=== PATIENT | male | born 1955 | race Caucasian/White ===

== ENCOUNTER 2018-03-09 21:05 | Inpatient (IN) | payer MEDICARE, OTHER ==
[~2018-03-09] VITALS: Ht 180.3 cm; Wt 81.2 kg
--- NOTE | 2018-03-09 21:10 | NUR ---
BIBSELF C/O FEELING DIZZY X 2 DAYS. HX VERTIGO. NAD NOTED, VSS, RESP EVEN AND UNLABORED, PT WAS PUT ON HOSPITAL GOWN AND MONITOR, WAITING FOR MD DC.
[2018-03-09 21:55] LABS: BASOPHILS # (AUTO) 0.1 /CMM (0.0-0.2); BASOPHILS % (AUTO) 0.9 % (0.0-2.0); EOSINOPHILS % (AUTO) 1.7 % (0.0-6.0); HEMATOCRIT 44 % (39-51); HEMOGLOBIN 15.2 g/dL (13.5-17.5); LYMPHOCYTES % (AUTO) 18.6 % (20.0-44.0); MEAN CORPUSCULAR HGB CONC 35 g/dl (31.0-36.0); MEAN CORPUSCULAR VOLUME 95 fL (80-96); MONOCYTES % (AUTO) 9.6 % (2.0-12.0); NEUTROPHILS # (AUTO) 7.6 /CMM (1.8-8.9); NEUTROPHILS % (AUTO) 69.2 % (43.0-81.0); PLATELET COUNT (AUTO) 210 /CMM (150-450); RDW COEFFICIENT OF VARIATION 14.2 (11.5-15.0); RED BLOOD CELL COUNT(AUTO) 4.63 MIL/uL (4.5-6.0); WHITE BLOOD COUNT (AUTO) 10.9 K/uL (4.3-11.0)
--- NOTE | 2018-03-09 21:59 | NUR ---
pt back from ctscan
[2018-03-09 22:08] LABS: INR 0.96 (0.87-1.13)
[2018-03-09 22:14] LABS: CALCIUM, SERUM 8.8 mg/dL (8.5-10.1); CARBON DIOXIDE 25 mmol/L (21-32); CHLORIDE 102 mmol/L (98-107); GLUCOSE 110 mg/dL (74-106); POTASSIUM 3.6 mmol/L (3.5-5.1); SODIUM SERUM 137 mmol/L (136-145); UREA NITROGEN, BLOOD 10 mg/dL (7-18)
[2018-03-09 22:18] LABS: ALANINE AMINOTRANSFERASE 19 U/L (12-78); ALBUMIN 3.7 g/dL (3.4-5.0); ALKALINE PHOSPHATASE 85 U/L (46-116); ASPARTATE AMINOTRANSFERASE 20 U/L (15-37); BILIRUBIN,DIRECT 0.2 mg/dL (0.0-0.2); BILIRUBIN,TOTAL 0.9 mg/dL (0.2-1.0); TOTAL PROTEIN, SERUM 6.9 g/dL (6.4-8.2)
[2018-03-09 22:20] LABS: TROPONIN I < 0.017 ng/mL (0.00-0.056)
--- NOTE | 2018-03-09 23:14 | NUR ---
Patient is resting comfortably in bed with eyes closed. Easily aroused. VSS
--- NOTE | 2018-03-09 23:27 | NUR ---
REPORT REC'D FROM BURT MOSS FOR VALERIANO.
--- NOTE | 2018-03-09 23:35 | NUR ---
PT AMBULATED TO THE BATHROOM AND BACK USING HIS CANE. PT STATED THAT HE WAS VERY DIZZY UPON RETURNING TO THE ROOM. PT STATED THAT THE ROOM SPINS WHEN HE CLOSES HIS EYES.
--- NOTE | 2018-03-09 23:36 | NUR ---
CALLING REPORT TO TELE NURSE.
[2018-03-09] MEDS ORDERED: MECLIZINE HCL 25 MG TABLET ONE (23:37)
--- NOTE | 2018-03-09 23:37 | NUR ---
TELE NURSE TO CALL BACK
--- NOTE | 2018-03-09 23:50 | NUR ---
CALLING REPORT TO BURT MAXWELL
[2018-03-10] VITALS: BP_SYST 140; BP_SYST 147; BP_DIAS 82; BP_DIAS 87
[2018-03-10] MEDS ORDERED: ONDANSETRON HCL/PF 4 MG/2 ML VIAL IVP PRN
[2018-03-10] MEDS ORDERED: MECLIZINE HCL 12.5 MG TABLET PO ONE
[2018-03-10] MEDS ORDERED: MECLIZINE HCL 12.5 MG TABLET PO PRN
--- NOTE | 2018-03-10 00:05 | NUR ---
[employer] SUPERINTENDENT NOTES ADMITTED 62YO MALE PT WITH DIZZINESS ALERT, AWAKE, VERBALLY RESPONSIVE. ON ROOM AIR RESPIRATIONS EVEN, UNLABORED, NO APPARENT DISTRESS NOTED. IV SITE LAC INTACT, PATENT. DENIES ANY PAIN OR DISCOMFORT AT THIS TIME. BODY ASSESSMENT DONE, NO SKIN BREAKDOWN NOTED. BED LOCKED IN LOWEST POSITION.NSR 62. CALL LIGHT WITHIN REACH. KEPT CLEAN AND COMFORTABLE, ATTENDED ALL NEEDS. WILL CONTINUE TO MONITOR ACCORDINGLY.
[2018-03-10] MEDS: ASPIRIN EC 81 MG TABLET.DR PO SCH ×2 (00:43→12:38)
[2018-03-10] MEDS: ACETAMINOPHEN 325 MG TABLET PO PRN (01:29)
[2018-03-10 04:00] VITALS: BP 99/59
--- NOTE | 2018-03-10 06:53 | NUR ---
SOFTWARE SUPPORT ANALYST CLOSING NOTES PT IN BED RESTING COMFORTABLY ON ROOM AIR, RESPIRATIONS EVEN, UNLABORED, NO APPARENT DISTRESS NOTED. DENIES ANY PAIN OR DISCOMFORT AT THIS TIME.NSR 62. IV SITE LAC INTACT, PATENT. KEPT CLEAN AND COMFORTABLE, ATTENDED ALL NEEDS. WILL ENDORSE TO DAY SHIFT FOR CONTINUITY OF CARE
[2018-03-10 07:13] LABS: THYROID STIMULATING HORMONE 1.85 uIU/mL (0.358-3.74)
[2018-03-10 07:15] LABS: ALBUMIN 3.2 g/dL (3.4-5.0); BILIRUBIN,TOTAL 0.9 mg/dL (0.2-1.0); CALCIUM, SERUM 8.5 mg/dL (8.5-10.1); CREATININE 0.8 mg/dL (0.6-1.3); MAGNESIUM 2.6 mg/dL (1.8-2.4); PHOSPHORUS 2.4 mg/dL (2.5-4.9); POTASSIUM 3.5 mmol/L (3.5-5.1); TOTAL PROTEIN, SERUM 6.2 g/dL (6.4-8.2)
[2018-03-10 07:35] LABS: BASOPHILS % (AUTO) 0.5 % (0.0-2.0); EOSINOPHILS % (AUTO) 3.2 % (0.0-6.0); HEMATOCRIT 42 % (39-51); HEMOGLOBIN 14.6 g/dL (13.5-17.5); LYMPHOCYTES # (AUTO) 2.3 /CMM (0.8-4.8); LYMPHOCYTES % (AUTO) 27.5 % (20.0-44.0); MEAN CORPUSCULAR HGB CONC 35 g/dl (31.0-36.0); MEAN CORPUSCULAR VOLUME 96 fL (80-96); MONOCYTES # (AUTO) 0.8 /CMM (0.1-1.30); MONOCYTES % (AUTO) 9.5 % (2.0-12.0); NEUTROPHILS # (AUTO) 4.9 /CMM (1.8-8.9); NEUTROPHILS % (AUTO) 59.3 % (43.0-81.0); PLATELET COUNT (AUTO) 191 /CMM (150-450); RDW COEFFICIENT OF VARIATION 14.2 (11.5-15.0); RED BLOOD CELL COUNT(AUTO) 4.38 MIL/uL (4.5-6.0); WHITE BLOOD COUNT (AUTO) 8.3 K/uL (4.3-11.0)
[2018-03-10 08:00] VITALS: BP 116/72
--- NOTE | 2018-03-10 08:00 | NUR ---
ms rn received obn bed, awake,aelert oriented x3,not in ay form of distress, respirations, even and unlabored,no sob noted, lungs are clear,abdomen soft,positive bowel sounds, denies pain at this time, will monitor patient.
--- NOTE | 2018-03-10 09:05 | NUR ---
ms rn breakfast served,for now, not until patient be seen by dr. camp.
--- NOTE | 2018-03-10 09:59 | NUR ---
ms rn was seen by dr. jodee tirado and carried out.
[2018-03-10] MEDS ORDERED: LORA-259 PO (10:08)
[2018-03-10] MEDS ORDERED: CT SWABBABLE VALVE TRANS SET 1 EA INFUS.SET MC ONE (10:49)
[2018-03-10] MEDS ORDERED: IV NS 0.9% 250 ML IV ONE (10:49)
[2018-03-10] MEDS ORDERED: IOHEXOL-350 100 ML VIAL IV ONE (10:49)
[2018-03-10] MEDS: LORAZEPAM 1 MG TABLET PO SCH (11:30)
[2018-03-10] MEDS: NICOTINE PATCH (21MG) 21 MG PATCH.TD24 TD SCH (11:30)
[2018-03-10] MEDS ORDERED: IV NS 0.9% 1,000 ML IV PRN (11:30)
[2018-03-10] MEDS: LORAZEPAM 0.5 MG TABLET PO PRN ×2 (11:41→20:04)
[2018-03-10] MEDS: PANTOPRAZOLE 40 MG TABLET.DR PO SCH (12:38)
[2018-03-10] MEDS ORDERED: K PHOS NEUTRAL 250 MG TABLET PO ONE (13:30)
[2018-03-10 16:08] VITALS: BP 107/70
--- NOTE | 2018-03-10 19:00 | NUR ---
ms rn no change of condition, patient is so noncompliant,all needs attended.
--- NOTE | 2018-03-10 19:45 | NUR ---
MS RN OPENING NOTES RECEIVED PT IN BED ALERT, AWAKE, VERBALLY RESPONSIVE, ON ROOM AIR, RESPIRATIONS EVEN, UNLABORED, NO APPARENT DISTRESS NOTED. DENIES ANY PAIN OR DISCOMFORT AT THIS TIME. IV SITE LAC INTACT, PATENT, ATTENDED ALL NEEDS. WILL CONTINUE TO MONITOR ACCORDINGLY.
[2018-03-10 20:00] VITALS: BP 121/78
[2018-03-10 22:00] VITALS: BP 121/78
--- NOTE | 2018-03-11 06:32 | NUR ---
MS RN CLOSING NOTES PT IN BED RESTING COMFORTABLY, ON ROOM AIR, RESPIRATIONS EVEN, UNLABORED, NO APPARENT DISTRESS NOTED. IV SITE LT AC INTACT, PATENT,CALL LIGHT WITHIN REACH. BED LOCKED IN LOWEST POSITION. KEPT CLEAN AND COMFORTABLE,ATTENDED ALL NEEDS. WILL CONTINUE TO MONITOR AND ENDORSE TO DAY SHIFT FOR CONTINUITY OF CARE
[2018-03-11 06:37] LABS: BASOPHILS # (AUTO) 0.1 /CMM (0.0-0.2); BASOPHILS % (AUTO) 0.7 % (0.0-2.0); EOSINOPHILS % (AUTO) 4.2 % (0.0-6.0); HEMATOCRIT 42 % (39-51); HEMOGLOBIN 14.6 g/dL (13.5-17.5); LYMPHOCYTES # (AUTO) 2.2 /CMM (0.8-4.8); LYMPHOCYTES % (AUTO) 29.3 % (20.0-44.0); MEAN CORPUSCULAR HGB CONC 35 g/dl (31.0-36.0); MEAN CORPUSCULAR VOLUME 95 fL (80-96); MONOCYTES # (AUTO) 0.7 /CMM (0.1-1.30); MONOCYTES % (AUTO) 9.1 % (2.0-12.0); NEUTROPHILS # (AUTO) 4.2 /CMM (1.8-8.9); NEUTROPHILS % (AUTO) 56.7 % (43.0-81.0); PLATELET COUNT (AUTO) 183 /CMM (150-450); RDW COEFFICIENT OF VARIATION 14.1 (11.5-15.0); RED BLOOD CELL COUNT(AUTO) 4.41 MIL/uL (4.5-6.0); WHITE BLOOD COUNT (AUTO) 7.4 K/uL (4.3-11.0)
[2018-03-11 07:06] LABS: CALCIUM, SERUM 8.1 mg/dL (8.5-10.1); CREATININE 0.9 mg/dL (0.6-1.3); MAGNESIUM 1.9 mg/dL (1.8-2.4); PHOSPHORUS 2.8 mg/dL (2.5-4.9); POTASSIUM 3.7 mmol/L (3.5-5.1)
--- NOTE | 2018-03-11 07:25 | NUR ---
RN OPENING NOTES RECEIVED PT. IN BED A&OX4. NO S/S OF SOB, BREATHING IS UNLABORED, AND EVEN ON ROOM AIR. NO S/S OF ACUTE DISTRESS. CANE NEAR BEDSIDE. BED IS IN LOWEST, AND LOCKED POSITION. 2 SIDE RAILS UP, AND INSTRUCTED PT. TO USE CALL LIGHT FOR ASSISTANCE. ALL NEEDS MET. WILL CONTINUE TO ASSESS AND MONITOR.
[2018-03-11 08:00] VITALS: BP 112/80
[2018-03-11] MEDS: NICOTINE PATCH (21MG) 21 MG PATCH.TD24 TD SCH (09:00)
[2018-03-11] MEDS: ASPIRIN EC 81 MG TABLET.DR PO SCH (10:07)
[2018-03-11] MEDS: PANTOPRAZOLE 40 MG TABLET.DR PO SCH (10:08)
[2018-03-11] MEDS: LORAZEPAM 1 MG TABLET PO SCH (10:08)
[2018-03-11 16:06] VITALS: BP 118/86
--- NOTE | 2018-03-11 19:15 | NUR ---
MS [place] OPENING NOTES: RECEIVED PT IN BED AND IS WATCHING TELEVISION AT THIS TIME. NO S/S OF DISTRESS NOTED AT THIS TIME. PT IS A/OX4. PT REQUESTING FOR A SMOKE BREAK. CALL LIGHT WITHIN PT'S REACH. BED KEPT IN LOW, LOCKED POSITION, AND SIDE RAILS X 2UP. CANE AT BEDSIDE. WILL CONTINUE TO MONITOR PT. Addendum: 03/11/18 at 2149 by RAMA YBARRA RN PT'S IV REMAINS INTACT.
--- NOTE | 2018-03-11 19:42 | NUR ---
MS RN NOTES: PT WENT DOWN FOR SMOKE BREAK WITH ORGANIZATIONAL EFFECTIVENESS DIRECTOR.
--- NOTE | 2018-03-11 19:50 | NUR ---
RN CLOSING NOTES PT. IS IN BED A&OX4. NO S/S OF SOB, BREATHING IS UNLABORED, AND EVEN ON ROOM AIR. NO S/S OF ACUTE DISTRESS. CANE NEAR BEDSIDE. BED IS IN LOWEST, AND LOCKED POSITION. 2 SIDE RAILS UP, AND INSTRUCTED PT. TO USE CALL LIGHT FOR ASSISTANCE. ALL NEEDS MET. WILL ENDORSE REPORT TO NURSE.
--- NOTE | 2018-03-11 19:51 | NUR ---
MS RN NOTES: PT BACK FROM SMOKE BREAK IN STABLE CONDITION.
[2018-03-11 20:00] VITALS: BP 114/68
[2018-03-11] MEDS: LORAZEPAM 0.5 MG TABLET PO PRN (21:10)
--- NOTE | 2018-03-11 21:13 | NUR ---
MS RN NOTES: PT VERY ANXIOUS. PT WALKING OUT OF ROOM. PT WAS ADMINISTERED ATIVAN 0.5MG PO. WILL CONTINUE TO MONITOR PT.
[2018-03-12] MEDS: PANTOPRAZOLE 40 MG TABLET.DR PO SCH (06:54)
--- NOTE | 2018-03-12 06:56 | NUR ---
MS RN NOTES: RETURNED PROTONIX BECAUSE PT WENT BACK TO SLEEP. LATER ON, PT WAS WALKING OUT OF THE ROOM AND REQUESTED IT SO HAD TO PULL ANOTHER PROTONIX AND ADMINISTERED.
--- NOTE | 2018-03-12 06:59 | NUR ---
MS RN CLOSING NOTES: ALL NEEDS WERE ATTENDED AND ANTICIPATED FOR. PT'S IV REMAINS INTACT. PT AWAKE AT THIS TIME AND WATCHING TELEVISION. CALL LIGHT WITHIN PTS' REACH. BED KEPT IN LOW, LOCKED POSITION, AND SIDE RAILS X 2UP. CANE AT BEDSIDE. WILL ENDORSE TO AM NURSE FOR VALERIANO.
--- NOTE | 2018-03-12 07:15 | NUR ---
RN OPENING NOTES RECEIVED PT. IN BED A&OX4. NO S/S OF SOB, BREATHING IS UNLABORED, AND EVEN ON ROOM AIR. NO S/S OF ACUTE DISTRESS. CANE NEAR BEDSIDE. REMOVED IV DUE TO TRAPPED BLOOD NEAR IV SITE. BED IS IN LOWEST, AND LOCKED POSITION. 2 SIDE RAILS UP, AND INSTRUCTED PT. TO USE CALL LIGHT FOR ASSISTANCE. ALL NEEDS MET. WILL CONTINUE TO ASSESS AND MONITOR.
[2018-03-12 08:00] VITALS: BP 123/64
[2018-03-12] MEDS: ACETAMINOPHEN 325 MG TABLET PO PRN (08:31)
[2018-03-12] MEDS: NICOTINE PATCH (21MG) 21 MG PATCH.TD24 TD SCH (09:00)
[2018-03-12] MEDS: ASPIRIN EC 81 MG TABLET.DR PO SCH (09:29)
[2018-03-12] MEDS: LORAZEPAM 1 MG TABLET PO SCH (09:30)
--- NOTE | 2018-03-12 09:31 | NUR ---
RN NOTES DID NOT ADMINISTER NICOTINE PATCH DUE TO PATIENT IS SMOKING A COUPLE TIMES A DAY.
[2018-03-12] MEDS ORDERED: PNEUMOCOCCAL 23-VAL P-SAC VAC 0.5 ML VIAL SQ ONE (11:30)
--- NOTE | 2018-03-12 11:57 | NUR ---
RN NOTES REPORT WAS GIVEN VIA PHONE TO BURT ROMEO AT [facility].
--- NOTE | 2018-03-12 13:46 | NUR ---
RN NOTES DISCHARGE PT. WAS PROVIDED DISCHARGE INSTRUCTIONS WITH EDUCATIONS, PT. VERBALIZED UNDERSTANDING, AND SIGNED DISCHARGE PAPERS. BELONGINGS LIST WAS CHECKED AND SIGNED. DISCHARGE PACKET WAS GIVEN TO PATIENT. ALL QUESTIONS ANSWERED.
[2018-03-12] MEDS: LORAZEPAM 0.5 MG TABLET PO PRN (15:14)
--- NOTE | 2018-03-12 15:19 | NUR ---
FIELD SUPPORT REP PT. WAS DISCHARGED IN MEDICALLY STABLE CONDITION AND LEFT WITH AMBULANCE CREW TO [facility] IN [place]. REPORT WAS GIVEN TO EMT AND DISCHARGE PAPERS. PT. LEFT WITH HIS BELONGINGS. CIGARETTES, AND TEST CELL TECHNICIAN WAS RETURNED TO PATIENT. ID BAND WAS REMOVED.
== END 2018-03-12 15:15 | DRG 312 ==
LOC: ER 21:11 → TELE 23:56 → MED 03-10 11:20
PROVIDERS: ADMIT Nurse Practitioner Acute Care; ATTEND Internal Medicine
DX: I95.1 Orthostatic hypotension (principal); E78.5 Hyperlipidemia, unspecified; I10 Essential (primary) hypertension; H26.9 Unspecified cataract; Z98.890 Other specified postprocedural states; Z72.0 Tobacco use; I70.0 Atherosclerosis of aorta; K21.9 Gastro-esophageal reflux disease without esophagitis
CPT/HCPCS: 36415; 70450-TC; 70496-TC; 70498-TC; 71045-TC; 80048-TC; 80053-TC; 80061-TC; 80076-TC; 83735-TC; 83880; 84100-TC; 84443-TC; 84484-TC; 85025-TC; 85730-TC; 87081-TC; 90732; 93307-TC; A4606; J7030; J7050; J8597; Q9967; Z7610

== ENCOUNTER 2018-06-05 12:35 | Inpatient (IN) | payer MEDICARE, OTHER ==
[~2018-06-05] VITALS: Ht 180.3 cm; Wt 80.0 kg
[~2018-06-05 12:35] MED LIST: LORA-259 PO
[2018-06-05 20:19] VITALS: BP 107/62
[2018-06-05] MEDS ORDERED: MAGNESIUM HYDROXIDE 30 ML UDC PO PRN (20:30)
[2018-06-05] MEDS ORDERED: MAG HYDROX/AL HYDROX/SIMETH 30 ML UDC PO PRN (20:30)
[2018-06-05] MEDS ORDERED: ACETAMINOPHEN 325 MG TABLET PO PRN (20:30)
[2018-06-05] MEDS ORDERED: LORAZEPAM 0.5 MG TABLET PO PRN (20:30)
--- NOTE | 2018-06-05 20:43 | NUR ---
PT. IS A TRANSFER FROM [facility]. HE ARRIVED ON THE UNIT AT 2042 VIA STRETCHER. THE PT. WAS ADMITTED ON A 5150 HOLD DUE TO GD, DTS. PER THE HOLD PAPERWORK, THE PT. STATED " I CAN'T STAND THIS LIFE. I CAN'T TRUST ANYONE. I HAVE NO FAMILY, NO FRIENDS." THE 5150 DOCUMENT WAS RECEIVED AND APPEARS TO REFLECT THE PRESENTATION OF THE PATIENT. PATIENT IS CURRENTLY LAYING ON HIS BED AWAKE AND NO HAS NO COMPLAINTS OF PAIN AT THIS TIME. NO ACUTE SIGNS OF ACUTE DISTRESS NOTED. THE PATIENT'S BREATHING IS UNLABORED WITH EQUAL FALL AND RISE OF THE CHEST. HE IS ORIENTED X3 ON ROOM AIR. PATIENT HAS BEEN ASSISTED WITH TURNING AND REPOSITIONING Q2HRS AND PRN FOR COMFORT AND CIRCULATION. HE CURRENTLY HAS COMPLAINTS. PATIENT IS NOTED TO BE DEPRESSED, WITHDRAWN AND ANXIOUS. HE ENDORSES SI AT THIS TIME BUT HAS NOT CONCRETE PLANS. THE SKIN ASSESSMENT COMPLETED AND PICTURED PLACED IN THE MEDICAL CHART. THE PATIENT IS UNDER THE CARE OF DR. BLACKMAN AND THE MEDICAL CARE OF DR. CORRAL. THE PATIENT'S BELONGING WERE INVENTORIED AND CHECKED FOR CONTRABANDS. ADVANCED DIRECTIVE PREFERENCES, IMMUNIZATIONS QUESTIONNAIRE AND NECESSARY PAPERWORK ARE COMPLETED AND PLACED IN THE CHART. PATIENT WAS ORIENTED TO THE ROOM, FLOOR AND STAFF. EDUCATED PT. ON THE USAGE OF THE CALL [place]. THE PATIENT'S BED IS LOCKED AND IN THE LOW POSITION, BEDSIDES RAILS ARE UP X2 FOR SAFETY. WILL CONTINUE TO MONITOR Q15MNS WITH THE HELP OF STAFF, FOR SAFETY.
[2018-06-06 05:59] LABS: BASOPHILS % (AUTO) 0.3 % (0.0-2.0); EOSINOPHILS % (AUTO) 7.8 % (0.0-6.0); HEMATOCRIT 43 % (39-51); HEMOGLOBIN 14.7 g/dL (13.5-17.5); LYMPHOCYTES # (AUTO) 1.9 /CMM (0.8-4.8); MEAN CORPUSCULAR HEMOGLOBIN 33 PG (26.0-33.0); MEAN CORPUSCULAR HGB CONC 34 g/dl (31.0-36.0); MEAN CORPUSCULAR VOLUME 97 fL (80-96); MONOCYTES # (AUTO) 0.7 /CMM (0.1-1.30); MONOCYTES % (AUTO) 7.3 % (2.0-12.0); NEUTROPHILS # (AUTO) 6.3 /CMM (1.8-8.9); NEUTROPHILS % (AUTO) 64.6 % (43.0-81.0); PLATELET COUNT (AUTO) 155 /CMM (150-450); RDW COEFFICIENT OF VARIATION 14.1 (11.5-15.0); RED BLOOD CELL COUNT(AUTO) 4.48 MIL/uL (4.5-6.0); WHITE BLOOD COUNT (AUTO) 9.7 K/uL (4.3-11.0)
[2018-06-06 06:16] LABS: CHOLESTEROL 153 mg/dL (<200); HDL CHOLESTEROL 64 mg/dL (40-60); LDL 81 mg/dL (0-99); TRIGLYCERIDES 73 mg/dL (30-150)
[2018-06-06 06:21] LABS: ALBUMIN 3.1 g/dL (3.4-5.0); BILIRUBIN,TOTAL 0.7 mg/dL (0.2-1.0); CALCIUM, SERUM 8.4 mg/dL (8.5-10.1); POTASSIUM 3.6 mmol/L (3.5-5.1); TOTAL PROTEIN, SERUM 6.2 g/dL (6.4-8.2)
--- NOTE | 2018-06-06 06:45 | NUR ---
GPS NOTES PT. REFUSED MRSA SWAB TEST. AM SHIFT AWARE.
[2018-06-06 08:00] VITALS: BP 100/53
[2018-06-06] MEDS ORDERED: LORA1TAB PO (08:03)
[2018-06-06] MEDS ORDERED: LORA0.5T PO (08:03)
[2018-06-06] MEDS ORDERED: PARO10TA86 PO (08:03)
[2018-06-06] MEDS ORDERED: QUET25TA PO (08:03)
[2018-06-06] MEDS: NICOTINE PATCH (21MG) 21 MG PATCH.TD24 TD SCH (10:00)
--- NOTE | 2018-06-06 11:00 | NUR ---
GPS/RN PT REFUSED NICOTINE PATCH OFFERED X3.
[2018-06-06] MEDS: risperiDONE-M 0.5 MG TAB.RAPDIS PO SCH ×2 (12:50→17:57)
[2018-06-06] MEDS: DIVALPROEX SODIUM 250 MG TABLET.DR PO SCH ×2 (12:50→21:51)
[2018-06-06] MEDS: LORAZEPAM 0.5 MG TABLET PO PRN (12:59)
[2018-06-06 16:09] VITALS: BP 115/60
[2018-06-06] MEDS: BENZTROPINE MESYLATE (1 MG) 1 MG TABLET PO SCH (17:58)
[2018-06-06 19:30] VITALS: BP 108/70
[2018-06-06] MEDS: TEMAZEPAM 7.5 MG CAPSULE PO PRN (21:52)
[2018-06-07 08:00] VITALS: BP 117/67
[2018-06-07] MEDS: BENZTROPINE MESYLATE (1 MG) 1 MG TABLET PO SCH ×2 (08:42→16:40)
[2018-06-07] MEDS: NICOTINE PATCH (21MG) 21 MG PATCH.TD24 TD SCH ×2 (08:42→08:56)
[2018-06-07] MEDS: DIVALPROEX SODIUM 250 MG TABLET.DR PO SCH ×3 (08:42→16:40)
[2018-06-07] MEDS: risperiDONE-M 0.5 MG TAB.RAPDIS PO SCH ×3 (08:42→16:40)
[2018-06-07] MEDS: LORAZEPAM 0.5 MG TABLET PO PRN ×4 (08:43→21:20)
--- NOTE | 2018-06-07 08:43 | NUR ---
RN NOTES ADMINISTERED ATIVAN 1 MG PO PRN FOR ANXIETY, PARANOIA, IRRITABLE, V/S TAKEN BP-117/67, CONTINUED MONITORING.
--- NOTE | 2018-06-07 13:11 | NUR ---
RN NOTES ADMINISTERED ATIVAN 1 MG PO PRN FOR anxiety per patient request, v/s taken stable bp-121/65, p-60, continued monitoring.
[2018-06-07 16:01] VITALS: BP 104/72
--- NOTE | 2018-06-07 17:07 | NUR ---
RN NOTES ADMINISTERED ATIVAN 1 MG PO PRN FRO ANXIETY PER PATIENT REQUEST, V/S TAKEN BP -104/72, P-67, CONTINUED MONITORING.
[2018-06-07 19:40] VITALS: BP 106/70
[2018-06-07] MEDS: TEMAZEPAM 7.5 MG CAPSULE PO PRN (23:34)
[2018-06-08] MEDS: LORAZEPAM 0.5 MG TABLET PO PRN ×5 (01:10→19:56)
--- NOTE | 2018-06-08 01:18 | NUR ---
GPS RN NOTE, PATIENT HAS A COMPLAINT OF FEELING ANXIOUS AND IS REQUESTING ATIVAN AT THIS TIME. PATIENT VITAL SIGNS ARE STABLE. GAVE ATIVAN 1MG PO Q4HR PRN ORDERED. WILL REASSESS FOR ANXIETY AND I WILL CONTINUE TO MONITOR THIS PATIENT.
[2018-06-08 08:00] VITALS: BP 109/62
--- NOTE | 2018-06-08 08:15 | NUR ---
GPS/RN PATIENT IS ANXIOUS, AGITATED, YELLING, PACING, ADMINISTERED ATIVAN 1 MG, WILL CONTINUE TO MONITOR.
[2018-06-08] MEDS: risperiDONE-M 0.5 MG TAB.RAPDIS PO SCH ×2 (08:16→12:02)
[2018-06-08] MEDS: BENZTROPINE MESYLATE (1 MG) 1 MG TABLET PO SCH ×3 (08:16→17:00)
[2018-06-08] MEDS: NICOTINE PATCH (21MG) 21 MG PATCH.TD24 TD SCH (08:16)
[2018-06-08] MEDS: DIVALPROEX SODIUM 250 MG TABLET.DR PO SCH ×2 (09:26→12:02)
--- NOTE | 2018-06-08 12:26 | NUR ---
GPS/RN PATIENT IS ANXIOUS, RESTLESS, SCREAMING AND VERBALLY ABUSIVE. ADMINISTERED ATIVAN 1 MG, WILL CONTINUE TO MONITOR.
--- NOTE | 2018-06-08 12:34 | NUR ---
INITIAL DISCHARGE PLAN: Patient wishes to be discharged to a snf or a residential treatment program such as [facility]. SW will help form a safe and proper discharge in collaboration with .
[2018-06-08] MEDS ORDERED: OLANZAPINE 10 MG VIAL IM STA (14:53)
--- NOTE | 2018-06-08 14:59 | NUR ---
GPS/RN PATIENT IS TRYING TO GET OUT OF EACH DOOR IN UNIT, SCREAMING, STRIKING OUT AT STAFF, VERBALLY ABUSIVE, UNABLE TO CONTROL AT THIS TIME. DR BLACKMAN AWARE, NEW ORDER OF ZYPREXA 10 MG IM X 1, ADMINISTERED ORDERED. WILL CONTINUE TO MONITOR.
[2018-06-08 16:00] VITALS: BP 134/85
[2018-06-08] MEDS ORDERED: risperiDONE 1 MG TABLET PO ONE (17:00)
[2018-06-08] MEDS ORDERED: diphenhydrAMINE HCL 50 MG CAPSULE PO ONE (17:00)
[2018-06-08] MEDS ORDERED: DIVALPROEX SODIUM 500 MG TABLET.DR PO SCH (17:00)
--- NOTE | 2018-06-08 17:00 | NUR ---
GPS/RN PATIENT CONTINUES TO STRIKING OUT AT STAFF AND ATTEMPTING TO AWOL FROM UNIT. NEW ORDER OF BENADRYL 50 PO X 1 AND RISPERDAL 2 MG PO. ADMINISTERED ORDERED, WILL CONTINUE TO MONITOR.
--- NOTE | 2018-06-08 18:35 | NUR ---
GPS/RN PATIENT IS ANXIOUS, AGITATED, YELLING WITH AGGRESSIVE BEHAVIOR. ADMINISTERED ATIVAN 1 MG, WILL CONTINUE TO MONITOR.
[2018-06-08 19:46] VITALS: BP 142/87
[2018-06-08] MEDS: DIVALPROEX SODIUM 500 MG TABLET.DR PO SCH (21:52)
[2018-06-08] MEDS: TEMAZEPAM 7.5 MG CAPSULE PO PRN (21:52)
[2018-06-08] MEDS ORDERED: risperiDONE 1 MG TABLET PO SCH (22:00)
[2018-06-09 08:00] VITALS: BP 105/58
[2018-06-09] MEDS ORDERED: DIVALPROEX SODIUM 250 MG TABLET.DR PO SCH (08:00)
[2018-06-09] MEDS ORDERED: risperiDONE-M 0.5 MG TAB.RAPDIS PO SCH (08:00)
[2018-06-09] MEDS: risperiDONE-M 0.5 MG TAB.RAPDIS PO SCH ×2 (08:11→12:35)
[2018-06-09] MEDS: BENZTROPINE MESYLATE (1 MG) 1 MG TABLET PO SCH ×3 (08:12→16:05)
[2018-06-09] MEDS: NICOTINE PATCH (21MG) 21 MG PATCH.TD24 TD SCH (08:12)
[2018-06-09] MEDS: DIVALPROEX SODIUM 250 MG TABLET.DR PO SCH ×2 (08:12→12:35)
[2018-06-09] MEDS: LORAZEPAM 0.5 MG TABLET PO PRN ×4 (08:14→21:50)
--- NOTE | 2018-06-09 08:15 | NUR ---
GPS/RN PATIENT IS EXTREMELY ANXIOUS, AGITATED, YELLING AND PACING. ADMINISTERED ATIVAN 1 MG, WILL CONTINUE TO MONITOR.
--- NOTE | 2018-06-09 10:51 | NUR ---
CHARAN faxed referral to [facility] intake & breastfeeding program coordinator at [facility] for impatient residential treatment. [id number]
--- NOTE | 2018-06-09 12:35 | NUR ---
GPS/RN PATIENT IS EXTREMELY ANXIOUS, AGITATED AND VERBALLY ABUSIVE. ADMINISTERED ATIVAN 1 MG, WILL CONTINUE TO MONITOR.
[2018-06-09 16:00] VITALS: BP 120/57
--- NOTE | 2018-06-09 17:47 | NUR ---
GPS/RN PATIENT IS EXTREMELY ANXIOUS AND AGITATED. ADMINISTERED ATIVAN 1 MG, WILL CONTINUE TO MONITOR.
[2018-06-09 20:15] VITALS: BP 125/82
[2018-06-09] MEDS: risperiDONE 1 MG TABLET PO SCH (21:08)
[2018-06-09] MEDS: DIVALPROEX SODIUM 500 MG TABLET.DR PO SCH (21:08)
[2018-06-09] MEDS: TEMAZEPAM 7.5 MG CAPSULE PO PRN (21:44)
--- NOTE | 2018-06-09 21:50 | NUR ---
GPS-RN PATIENT VERY ANXIOUS AND RESTLESS, PACING IN AND OUT OF HIS ROOM, VSS. ADMINISTERED ATIVAN 1MG PO ORDERED. WILL CONTINUE TO MONITOR Q15MIN ROUNDS FOR SAFETY AND BEHAVIOR.
[2018-06-10] MEDS: LORAZEPAM 0.5 MG TABLET PO PRN ×4 (07:04→21:16)
--- NOTE | 2018-06-10 07:04 | NUR ---
GPS-RN PATIENT VERY ANXIOUS, PACING IN AND OUT OF HIS ROOM, VSS. ADMINISTERED ATIVAN 1MG PO ORDERED. WILL CONTINUE TO MONITOR Q15MIN ROUNDS FOR SAFETY AND BEHAVIOR.
[2018-06-10 08:00] VITALS: BP 131/51
[2018-06-10] MEDS: NICOTINE PATCH (21MG) 21 MG PATCH.TD24 TD SCH (08:12)
[2018-06-10] MEDS: BENZTROPINE MESYLATE (1 MG) 1 MG TABLET PO SCH ×3 (08:12→16:57)
[2018-06-10] MEDS: DIVALPROEX SODIUM 250 MG TABLET.DR PO SCH ×2 (08:12→12:35)
[2018-06-10] MEDS: risperiDONE-M 0.5 MG TAB.RAPDIS PO SCH ×2 (08:14→12:35)
--- NOTE | 2018-06-10 10:26 | NUR ---
[facility] Address: [address] [place] [address] fax: [phone] for review.
[2018-06-10 16:00] VITALS: BP 123/90
[2018-06-10] MEDS: risperiDONE 1 MG TABLET PO SCH (21:01)
[2018-06-10] MEDS: DIVALPROEX SODIUM 500 MG TABLET.DR PO SCH (21:01)
--- NOTE | 2018-06-10 21:16 | NUR ---
GPS-RN PATIENT IS VERY ANXIOUS, AGITATED, PACING IN AND OUT OF HIS ROOM, ADMINISTERED [id number] PO ORDERED. WILL CONTINUE TO MONITOR.
[2018-06-10] MEDS: TEMAZEPAM 7.5 MG CAPSULE PO PRN (22:26)
[2018-06-11] MEDS: LORAZEPAM 0.5 MG TABLET PO PRN ×3 (06:15→21:51)
--- NOTE | 2018-06-11 06:15 | NUR ---
GPS-RN PATIENT IS VERY ANXIOUS, AGITATED, RESTLESS, PACING IN AND OUT OF HIS ROOM, ADMINISTERED [id number] PO ORDERED. WILL CONTINUE TO MONITOR.
[2018-06-11] MEDS: risperiDONE-M 0.5 MG TAB.RAPDIS PO SCH ×3 (08:57→16:18)
[2018-06-11] MEDS: BENZTROPINE MESYLATE (1 MG) 1 MG TABLET PO SCH ×3 (08:57→16:19)
[2018-06-11] MEDS: NICOTINE PATCH (21MG) 21 MG PATCH.TD24 TD SCH ×2 (08:57→09:00)
[2018-06-11] MEDS: DIVALPROEX SODIUM 250 MG TABLET.DR PO SCH ×2 (08:57→12:13)
[2018-06-11 09:13] VITALS: BP 111/76
--- NOTE | 2018-06-11 11:04 | NUR ---
GPS/RN-NOTES NOTED PATIENT PACING IN THE UNIT,HYPERVERBAL WITH LOUD VOICE,INTRUSIVE AND DEMANDING. OFFERED ATIVAN AND AGREED. ATIVAN 1MG P.O GIVEN PRN ORDER. WILL CONT. ON 1:1 MONITORING FOR SAFETY AND BEHAVIOR.
--- NOTE | 2018-06-11 12:10 | NUR ---
GPS/RN-NOTES PATIENT WATCHING TV IN THE DAY ROOM,CALM NO ACUTE DISTRESS NOTED.
[2018-06-11 16:00] VITALS: BP 105/78
[2018-06-11 20:00] VITALS: BP 133/79
[2018-06-11] MEDS: DIVALPROEX SODIUM 500 MG TABLET.DR PO SCH (21:49)
[2018-06-11] MEDS: TEMAZEPAM 7.5 MG CAPSULE PO PRN (21:50)
[2018-06-11] MEDS ORDERED: risperiDONE 1 MG TABLET PO SCH (22:00)
[2018-06-12 08:00] VITALS: BP 110/70
[2018-06-12] MEDS: risperiDONE-M 0.5 MG TAB.RAPDIS PO SCH ×2 (08:02→12:28)
[2018-06-12] MEDS: BENZTROPINE MESYLATE (1 MG) 1 MG TABLET PO SCH ×2 (08:02→12:28)
[2018-06-12] MEDS: DIVALPROEX SODIUM 250 MG TABLET.DR PO SCH ×2 (08:02→12:28)
[2018-06-12] MEDS: NICOTINE PATCH (21MG) 21 MG PATCH.TD24 TD SCH ×2 (08:03→09:00)
--- NOTE | 2018-06-12 09:14 | NUR ---
DR. BLACKMAN GAVE AN ORDER TO THE CHARGE NURSE TO D/C HOLD AND D/C TO [facility], TO CONTINUE SAME MEDS INCLUDING PRN AND TO FOLLOW UP WITH PSYCH AND MEDICAL DOCTORS. PT. WITHOUT DISTRESS, DENIES SUICIDAL AND HOMICIDAL.
[2018-06-12 12:04] LABS: BASOPHILS % (AUTO) 0.4 % (0.0-2.0); EOSINOPHILS % (AUTO) 2.4 % (0.0-6.0); HEMATOCRIT 43 % (39-51); HEMOGLOBIN 14.5 g/dL (13.5-17.5); LYMPHOCYTES # (AUTO) 1.8 /CMM (0.8-4.8); LYMPHOCYTES % (AUTO) 16.6 % (20.0-44.0); MEAN CORPUSCULAR HEMOGLOBIN 32 PG (26.0-33.0); MEAN CORPUSCULAR HGB CONC 34 g/dl (31.0-36.0); MEAN CORPUSCULAR VOLUME 96 fL (80-96); MONOCYTES % (AUTO) 9.1 % (2.0-12.0); NEUTROPHILS # (AUTO) 7.6 /CMM (1.8-8.9); NEUTROPHILS % (AUTO) 71.5 % (43.0-81.0); PLATELET COUNT (AUTO) 189 /CMM (150-450); RDW COEFFICIENT OF VARIATION 14.1 (11.5-15.0); WHITE BLOOD COUNT (AUTO) 10.6 K/uL (4.3-11.0)
[2018-06-12 12:12] LABS: ALBUMIN 3.5 g/dL (3.4-5.0); BILIRUBIN,TOTAL 0.7 mg/dL (0.2-1.0); CALCIUM, SERUM 8.7 mg/dL (8.5-10.1); POTASSIUM 4.1 mmol/L (3.5-5.1)
--- NOTE | 2018-06-12 12:50 | NUR ---
TANYA MEJIAS MADE AWARE OF THE DISCHARGE AND RECONCILED MEDS AND MADE AWARE OF THE LABS AND SAID OK. BELONGINGS READY, PICTURE TAKEN FOR THE SKIN ISSUES, DISCHARGE PAPERS READY AND REPORT GIVEN TO DONAVAN OVER THE FACILITY.
--- NOTE | 2018-06-12 13:25 | NUR ---
PT. LEFT THE UNIT VIA AMBULANCE AND TRANSPORTED VIA A GURNEY WITH BELONGINGS. LEFT WITHOUT DISTRESS AND ON STABLE CONDITION. V/S TAKEN: BP:105/68. NH 92, TEMP.97.7, RR 20 OXYGEN SAT 97%.
--- NOTE | 2018-06-12 13:53 | NUR ---
DISCHARGE NOTE: Pt will be discharged at 1:00pm to [facility] (SNF) [address] [address] via [facility] ambulance trip # [id number]. Pt has no family to notify. Pts mood was anxious with congruent affect. Pt denied suicidal/homicidal ideations and denied visual/auditory hallucinations. Patient was provided referrals to address his substance and alcohol use. Patient was referred to [facility]: [facility] [place] [address] and will report for an Intake on Friday June 15, 2018 before 5:00pm. Additional resources included [facility] [address] [place] [address] and [facility] [address] [place] [address] . For smoking cessation, patient will be referred to the [employer] or [employer] [id number]-Ptpl-WGL. Pt will be under the medical care of Psychiatrist: Dr. Ash Sow [address] [address], [place] [address] [phone] and Bedspread Folder: Dr. All Seth [address] [phone] Phone 1: . The multidisciplinary exitcare form was done, printed, signed, and given to the patient.
== END 2018-06-12 13:25 | DRG 885 ==
LOC: GPS 20:00
PROVIDERS: ADMIT Psychiatry & Neurology Psychosomatic Medicine; ATTEND Psychiatry & Neurology Psychosomatic Medicine
DX: F25.0 Schizoaffective disorder, bipolar type (principal); R45.851 Suicidal ideations; E78.5 Hyperlipidemia, unspecified; K21.9 Gastro-esophageal reflux disease without esophagitis; F12.90 Cannabis use, unspecified, uncomplicated; F10.10 Alcohol abuse, uncomplicated; Z91.14 Patient's other noncompliance with medication regimen; Z91.5 Personal history of self-harm; Z59.0 Homelessness; F17.200 Nicotine dependence, unspecified, uncomplicated; R73.9 Hyperglycemia, unspecified; V89.2XXS Person injured in unspecified motor-vehicle accident, traffic, sequela
CPT/HCPCS: 36415; 80053-TC; 80061-TC; 80164-TC; 85025-TC; J3490; Q0163